=== PATIENT | female | born 1935 | race Caucasian/White ===

== ENCOUNTER 2017-03-08 17:14 | Emergency (ER) | payer MEDICARE, BC ==
--- NOTE | 2017-03-08 17:28 | ER Document Report ---
ED Medical Screen (RME) - General Chief Complaint: Foot Pain Stated Complaint: RIGHT FOOT INJURY TRAVEL OUTSIDE OF THE [place] IN LAST 30 DAYS: No - HPI Notes: 03/08/17 17:27 Status post one week foot injury drop scissors now foot red swollen patient on Coumadin for A. fib - Related Data Allergies/Adverse Reactions: codeine Allergy (Verified 03/08/17 17:21) Past Medical History Renal/ Medical History: Denies: Hx Peritoneal Dialysis Review of Systems - Review of Systems Constitutional: Other - Foot injury Physical Exam - Vital signs Vitals: Temp Pulse Resp BP Pulse Ox 98.4 F 65 20 177/57 H 98 03/08/17 17:21 03/08/17 17:21 03/08/17 17:21 03/08/17 17:21 03/08/17 17:21 - General General appearance: Appears well In distress: None - Respiratory Respiratory status: No respiratory distress Chest status: Nontender Breath sounds: Normal Chest palpation: Normal Course - Vital Signs Vital signs: Temp Pulse Resp BP Pulse Ox 98.4 F 65 20 177/57 H 98 03/08/17 17:21 03/08/17 17:21 03/08/17 17:21 03/08/17 17:21 03/08/17 17:21
[2017-03-08 17:51] LABS: ABSOLUTE BASOPHILS # (AUTO) 0.1 10^3/uL (0.0-0.2); ABSOLUTE EOSINOPHILS # (AUTO) 0.3 10^3/uL (0.0-0.6); ABSOLUTE LYMPHOCYTES (AUTO) 1.9 10^3/uL (0.5-4.7); ABSOLUTE MONOCYTES (AUTO) 0.9 10^3/uL (0.1-1.4); ABSOLUTE NEUT (AUTO) 6.5 10^3/uL (1.7-8.2); BASOPHILS % (AUTO) 0.8 % (0-2); EOSINOPHILS % (AUTO) 3.3 % (0-6); HEMATOCRIT 38.8 % (36.0-47.0); HEMOGLOBIN 13.2 g/dL (12.0-15.5); HGB HCT DIFFERENCE 0.8; LYMPHOCYTES % (AUTO) 19.8 % (13-45); MEAN CORPUSCULAR HEMOGLOBIN 28.1 pg (27.0-33.4); MEAN CORPUSCULAR HGB CONC 34.1 g/dL (32.0-36.0); MEAN CORPUSCULAR VOLUME 82 fl (80-97); MONOCYTES % (AUTO) 8.9 % (3-13); RED BLOOD COUNT 4.71 10^6/uL (3.72-5.28); RED CELL DISTRIBUTION WIDTH 19.6 % (11.5-14.0); SEGMENTED NEUTROPHILS % (AUTO) 67.2 % (42-78); WHITE BLOOD COUNT 9.7 10^3/uL (4.0-10.5)
[2017-03-08 18:01] LABS: PROTHROMBIN TIME 36.2 SEC (11.4-15.4)
[2017-03-08 18:02] LABS: PARTIAL THROMBOPLASTIN TIME 46.8 SEC (23.5-35.8)
[2017-03-08 18:08] LABS: ANION GAP 9 (5-19); BLOOD UREA NITROGEN 24 mg/dL (7-20); CALCIUM 9.8 mg/dL (8.4-10.2); CARBON DIOXIDE 28 mmol/L (22-30); CHLORIDE 106 mmol/L (98-107); CREATININE RESULT 1.31 mg/dL (0.52-1.25); GLUCOSE 112 mg/dL (75-110); POTASSIUM 3.4 mmol/L (3.6-5.0); SODIUM 143.2 mmol/L (137-145)
[2017-03-08] MEDS ORDERED: CEPHALEXIN 500 MG CAPSULE PO ONE (18:51)
[2017-03-08] MEDS ORDERED: ACETAMINOPHEN 325 MG TABLET PO ONE (18:52)
[2017-03-08] MEDS ORDERED: DOXYCYCLINE HYCLATE 100 MG TABLET PO ONE (18:52)
--- NOTE | 2017-03-08 18:53 | ER Document Report ---
ED General - General Chief Complaint: Foot Pain Stated Complaint: RIGHT FOOT INJURY Notes: Patient is a 81-year-old female who presents after she accidentally dropped a pair of scissors on the dorsum of her right foot 2 weeks ago and has since developed a spreading erythema from the area and progressively worsening pain. She is visiting from [place] and has not been able see her primary care doctor due to being out of town. Denies a history of similar symptoms in the past. Describes a constant, dull, throbbing pain to the foot that she describes as a 10 out of 10 pain. She is not have any constitutional symptoms or fever. She has noted that the redness has spread significantly since it started. Nothing improves or worsens her symptoms. TRAVEL OUTSIDE OF THE [place] IN LAST 30 DAYS: No - Related Data Allergies/Adverse Reactions: codeine Allergy (Verified 03/08/17 17:21) Past Medical History - General Information source: Patient - Social History Smoking Status: Never Smoker Frequency of alcohol use: None Drug Abuse: None Lives with: Family Family History: Reviewed & Not Pertinent Patient has suicidal ideation: No Patient has homicidal ideation: No Renal/ Medical History: Denies: Hx Peritoneal Dialysis Review of Systems - Review of Systems Notes: Constitutional: Negative for fever. HENT: Negative for sore throat. Eyes: Negative for visual changes. Cardiovascular: Negative for chest pain. Respiratory: Negative for shortness of breath. Gastrointestinal: Negative for abdominal pain, vomiting or diarrhea. Genitourinary: Negative for dysuria. Musculoskeletal: Negative for back pain. Skin: Positive for rash Neurological: Negative for headaches, weakness or numbness. 10 point ROS negative except as marked above and in HPI. Physical Exam - Vital signs Vitals: Temp Pulse Resp BP Pulse Ox 98.4 F 65 20 177/57 H 98 03/08/17 17:21 03/08/17 17:21 03/08/17 17:21 03/08/17 17:21 03/08/17 17:21 Interpretation: Hypertensive Notes: PHYSICAL EXAMINATION: GENERAL: Well-appearing, well-nourished and in no acute distress. HEAD: Atraumatic, normocephalic. EYES: Pupils equal round and reactive to light, extraocular movements intact, sclera anicteric, conjunctiva are normal. ENT: nares patent, oropharynx clear without exudates. Moist mucous membranes. NECK: Normal range of motion, supple without lymphadenopathy LUNGS: Breath sounds clear to auscultation bilaterally and equal. No wheezes rales or rhonchi. HEART: Regular rate and rhythm without murmurs ABDOMEN: Soft, nontender, normoactive bowel sounds. No guarding, no rebound. No masses appreciated. EXTREMITIES: Normal range of motion, no pitting or edema. No cyanosis. NEUROLOGICAL: No focal neurological deficits. Moves all extremities spontaneously and on command. PSYCH: Normal mood, normal affect. SKIN: Warm, Dry, normal turgor, there is diffuse erythema and edema of the dorsal surface of the right foot with a raised area of induration consistent with a small abscess. Erythema spreads to just above the ankle. Course - Re-evaluation Re-evalutation: 03/08/17 18:52 Patient presents with a cellulitis and associated abscess on the dorsum of her right foot after sustaining a puncture wound 1 week ago. She is overall nontoxic in appearance, vitals within normal limits and she is in no acute distress. Vitals labs are not consistent with bacteremia or sepsis. The abscess was incised and drained bedside without difficulty. Only a 1-2 mL of purulent drainage was expressed with a large amount of clotted old blood. She has been started on doxycycline and Keflex.At this time will discharge with return precautions and follow-up recommendations. Verbal discharge instructions given a the bedside and opportunity for questions given. Medication warnings reviewed. Patient is in agreement with this plan and has verbalized understanding of return precautions and the need for primary care follow-up in the next 24-72 hours. - Vital Signs Vital signs: Temp Pulse Resp BP Pulse Ox 98.3 F 60 16 156/60 H 95 03/08/17 19:24 03/08/17 19:24 03/08/17 19:24 03/08/17 19:24 03/08/17 19:24 - Laboratory Result Diagrams: 03/08/17 17:29 03/08/17 17:29 Laboratory results interpreted by me: 03/08/17 03/08/17 03/08/17 17:29 17:29 17:29 RDW 19.6 H PT 36.2 H APTT 46.8 H Potassium 3.4 L BUN 24 H Creatinine 1.31 H Est GFR ( Amer) 47 L Est GFR (Non-Af Amer) 39 L Glucose 112 H - Diagnostic Test Radiology reviewed: Image reviewed, Reports reviewed Radiology results interpreted by me: 03/08/17 19:10 Right foot x-ray: Swelling without acute fracture Procedures - Incision and Drainage Right Foot Type: Simple Anesthetic type: 1% Lidocaine mL's of anesthetic: 5 Blade size: 11 I&D procedure: Betadine prep applied Incision Method: Incision made by scalpel Amount/type of drainage: 2 mL of bloody, purulent drainage Discharge - Discharge Clinical Impression: Cellulitis of foot, right, Abscess of right foot Condition: Good Disposition: HOME, SELF-CARE Additional Instructions: The rash is likely due to infection of your skin. You need to take the antibiotics as prescribed. Do not stop even if the rash goes away until you have completed all the antibiotics. The area of redness was traced out here in the emergency department with a marking pen. Clean the area twice daily with soap and water and then applying a [id number] antibiotic ointment. Then apply a gauze and cover with the Wilfrido wrap. You need to return to emergency department if the redness spreads outside of this area by more than 2 cm in any direction. You should also return if you develop fevers with temperature greater than 101, persistent vomiting, worsening pain, or have any other symptoms that are concerning to you. For pain control take Tylenol 1000 mg every 6 hours scheduled Prescriptions: Cephalexin Monohydrate [Keflex 500 mg Capsule] 500 mg PO QID #40 capsule Doxycycline Hyclate 100 mg PO BID #20 capsule
[2017-03-08 19:49] VITALS: BP 156/60
== END 2017-03-08 19:26 | disposition home or self-care (01) ==
LOC: ER 17:14
PROC: 0H9MXZZ Drainage of Right Foot Skin, External Approach (ICD-10-PCS; principal; 2017-03-08)
DX: L02.611 Cutaneous abscess of right foot (principal); L03.115 Cellulitis of right lower limb; Z88.5 Allergy status to narcotic agent
CPT/HCPCS: 10060; 99283; 36415; 87040; 85025; 85610; 85730; 80048; 73620; A9270 ×3